=== PATIENT | male | born 2000 | race Two or more races ===

== ENCOUNTER 2023-02-06 19:04 | Emergency (ER) | payer MEDICAID, OTHER ==
[~2023-02-06] VITALS: Ht 170.2 cm; Wt 59.1 kg
[2023-02-06 19:26] VITALS: BP 127/79
[2023-02-06] MEDS ORDERED: ALPRAZolam 0.5 MG TAB PO ONE (20:15)
[2023-02-06 20:47] LABS: Basophils # (auto) 0 10 ^3/uL (0-0.2); Basophils % (auto) 0.2 % (0.0-2.0); Eosinophils # (auto) 0 10 ^3/uL (0-0.8); Eosinophils % (auto) 0.2 % (0.0-7.0); Hematocrit 39.8 % (41.0-53.0); Hemoglobin 13.2 g/dL (13.5-17.5); Lymphocytes # (auto) 1.1 10 ^3/uL (0.4-5.4); Lymphocytes % (auto) 16.8 % (10.0-50.0); Mean Corpuscular Hemoglobin 27.4 pg (28.0-32.0); Mean Corpuscular Hgb Conc. 33.3 g/dL (32.0-36.0); Mean Corpuscular Volume 82.2 fL (80.0-100.0); Monocytes # (auto) 0.5 10 ^3/uL (0-1.3); Monocytes % (auto) 7.2 % (0.0-12.0); Neutrophils # (auto) 4.8 10 ^3/uL (1.6-8.6); Neutrophils % (auto) 75.6 % (37.0-80.0); Nucleated Red Blood Cells % 0.1 %; Red Blood Cells 4.84 10^6/uL (4.5-5.90); Red Cell Distribution Width 14.5 % (11.8-14.3); White Blood Cell 6.3 10^3/uL (4.4-10.8)
[2023-02-06 21:01] LABS: Albumin 4.4 g/dL (3.4-5.0); Potassium 4.2 mmol/L (3.5-5.1)
[2023-02-06 21:05] LABS: BUN/Creatinine Ratio 12.5 (10.0-20.0); Bilirubin, Total 0.7 mg/dL (0.2-1.0); Total Protein 8.2 g/dL (6.4-8.2)
[2023-02-06] MEDS ORDERED: ALPR0.5T PO (23:47)
== END 2023-02-07 01:23 | disposition home or self-care (01) ==
LOC: ER 19:04
DX: R42 Dizziness and giddiness (principal); F41.9 Anxiety disorder, unspecified; R00.2 Palpitations
CPT/HCPCS: 36415; 70450; 80053; 84484; 85025; 93005

== ENCOUNTER 2024-03-15 22:46 | Emergency (ER) | payer MEDICAID, OTHER ==
[~2024-03-15] VITALS: Ht 162.6 cm; Wt 62.5 kg
[~2024-03-15 22:46] MED LIST: ALPR0.5T PO
[2024-03-15 23:15] VITALS: BP 129/81; PULSE 78; RESP 16; TEMP 99.2; O2SAT 100
[2024-03-16] MEDS ORDERED: CEPH500C PO (00:30)
[2024-03-16] MEDS ORDERED: MUPI2OIN2 EX (00:30)
[2024-03-16] MEDS: SILVER SULFADIAZINE 1 % TOPICAL CREAM 50GM TOP ONE (01:10)
[2024-03-16] MEDS: TETANUS-DIPTH-ACEL PERTUSSIS 0.5ML SYR Tdap IM ONE (01:11)
[2024-03-16] MEDS: CEPHALEXIN 250 MG CAP PO ONE (01:11)
[2024-03-16] MEDS: HYDROcodone-ACET 5/325MG TAB PO ONE (01:13)
== END 2024-03-16 01:38 | disposition home or self-care (01) ==
LOC: ER 22:46
DX: T20.27XA Burn of second degree of neck, initial encounter (principal); T31.0 Burns involving less than 10% of body surface; Z79.899 Other long term (current) drug therapy; X10.2XXA Contact with fats and cooking oils, initial encounter; Y93.89 Activity, other specified; Y92.89 Other specified places as the place of occurrence of the external cause; Y99.0 Civilian activity done for income or pay
CPT/HCPCS: 16000; 90471; 90715